=== PATIENT | female | born 1950 | race Asian ===

== ENCOUNTER → 2023-04-29 | Day surgery (SDC) | payer MEDICARE ==
[2023-04-24 12:39] LABS: BASOPHILS % 0.7 % (0.0-1.0); EOSINOPHILS # (AUTO) 0.1 (0.0-0.4); EOSINOPHILS % 1.8 % (0.0-6.0); HEMATOCRIT 40.2 % (34.2-44.1); HEMOGLOBIN 13.3 g/dL (12.0-16.0); LYMPHOCYTES # (AUTO) 2.1 (1.0-3.2); LYMPHOCYTES % 36.6 % (18.0-39.1); MEAN CORPUSCULAR HEMOGLOBIN 30.9 pg (28-32); MEAN CORPUSCULAR HGB CONC 33.1 g/dL (31-35); MEAN CORPUSCULAR VOLUME 93.3 fL (81-99); MONOCYTES # (AUTO) 0.5 (0.2-0.8); MONOCYTES % 9.5 % (4.4-11.3); NEUTROPHILS # (AUTO) 2.9 (2.1-6.9); NEUTROPHILS % 51.4 % (38.7-80.0); PLATELET COUNT 171 x10e3/uL (140-360); RED BLOOD COUNT 4.31 x10e6/uL (3.6-5.1); RED CELL DISTRIBUTION WIDTH 13.2 % (11.7-14.4); WHITE BLOOD COUNT 5.66 x10e3/uL (4.8-10.8)
[~2023-04-29] MED LIST: ACTOS15 MG PO; ASPIRIN81 MG PO; AZELASTINE HCL OP; CARVEDILOL6.25 MG PO; HYALURONIDASE 16 MG/2 ML SYR ONE; IOPAMIDOL 200 MG/ML 20 ML VIAL IT ONE; JENTADUETO 2.51 EAC2 PO; LACTATED RINGER'S 1,000 ML ONE; LEVOCETIRIZINE D5 MG PO; LIDOCAINE HCL 1% 30ML-PF VIAL ONE; LIDOCAINE HCL 2% LOCAL INJ 5 ML SDV VIAL INJ ONE; LOSARTAN-HCTZ1 EACH PO; MELOXICAM7.5 MG PO; MEMANTINE HCL E14 MG PO; NEURONTIN100 MG PO; PRAVASTATIN SOD20 MG PO; PROPOFOL IV EMULSION 10 MG/ML 20 ML VIAL ONE; TRESIBA FL200 UNIT/1 SQ; VASCEPA1 GM PO
[2023-04-29 09:20] VITALS: BP 114/53; PULSE 84; RESP 17; O2SAT 100
== END | disposition home or self-care (01) ==
LOC: OR 07:18
PROVIDERS: ATTEND Physical Medicine & Rehabilitation Pain Medicine
DX: M17.11 Unilateral primary osteoarthritis, right knee (principal); S83.209A Unspecified tear of unspecified meniscus, current injury, unspecified knee, initial encounter; M54.12 Radiculopathy, cervical region; E11.9 Type 2 diabetes mellitus without complications; I10 Essential (primary) hypertension; E78.00 Pure hypercholesterolemia, unspecified; W19.XXXA Unspecified fall, initial encounter; Z01.812 Encounter for preprocedural laboratory examination; Z79.82 Long term (current) use of aspirin; Z79.1 Long term (current) use of non-steroidal anti-inflammatories (NSAID); Z79.84 Long term (current) use of oral hypoglycemic drugs; Z79.4 Long term (current) use of insulin; Z87.891 Personal history of nicotine dependence
CPT/HCPCS: 20610; 36415 ×2; 77002; 82948; 85025; J2001 ×2; J2704; J7121; J7325; Q9967